=== PATIENT | male | born 1975 | race Caucasian/White ===

== ENCOUNTER 2016-07-27 00:43 | Emergency (ER) | payer OTHER ==
[~2016-07-27] VITALS: Ht 177.8 cm; Wt 113.0 kg
[2016-07-27 00:57] VITALS: BP 147/92; PULSE 128; RESP 16; TEMP 98.3; O2SAT 98
[2016-07-27 01:27] VITALS: BP 145/81; PULSE 124; RESP 18; O2SAT 99
[2016-07-27 01:32] LABS: AUTOMATED NEUTROPHIL # 8.4 TH/MM3 (1.8-7.7); BASOPHIL % 0.4 % (0.0-2.0); EOSINOPHIL % 0.1 % (0.0-4.0); HEMATOCRIT 42.7 % (39.0-51.0); HEMO FLAGS DIFF FINAL; LYMPH % 17.7 % (9.0-44.0); MEAN CELL VOLUME 91.9 FL (80.0-100.0); MEAN CORPUSCULAR HEMOGLOBIN 32.8 PG (27.0-34.0); MEAN CORPUSCULAR HGB CONC 35.7 % (32.0-36.0); NEUT % 73.8 % (16.0-70.0); PLATELET COUNT 163 TH/MM3 (150-450); RED BLOOD COUNT 4.65 MIL/MM3 (4.50-5.90); RED CELL DISTRIBUTION WIDTH 13.5 % (11.6-17.2); WHITE BLOOD COUNT 11.4 TH/MM3 (4.0-11.0)
--- NOTE | 2016-07-27 01:53 | PD ---
HPI Chief Complaint: Psychiatric Symptoms Time Seen by Provider: 01:01 Travel History International Travel<30 days: No Contact w/Intl Traveler<30days: No Traveled to known affect area: No History of Present Illness HPI 40-year-old male came to the emergency room with a Garcia act. He is intoxicated and threatened to kill himself. His called 911. Here he has been loud, inappropriate and argumentative. Given his intoxicated state patient is unable to give any meaningful history at this point. The above scant history was obtained from the Police paperwork who had Garcia acted him. [facility] Past Medical History Narrative Medical List of his past medical history as reviewed from the nursing note. Medical History: Unable to Obtain Diminished Hearing: No Tetanus Vaccination: Unknown Influenza Vaccination: No Past Surgical History Surgical History: Unable to Obtain Social History Alcohol Use: Yes Tobacco Use: Yes Substance Use: No Allergies-Medications (Allergen,Severity, Reaction): Coded Allergies: Penicillin (Verified Allergy, Unknown, 07/27/16) Comments List of his allergies reviewed from the nursing note. Reported Meds & Prescriptions Reported Meds & Active Scripts Active Active Prescriptions or Reported Medications Unobtainable Narrative Medication List of his home medications reviewed from the nursing note. Review of Systems Except as stated in HPI: all other systems reviewed are Neg Physical Exam Narrative GENERAL: Moderately intoxicated, slurred speech SKIN: Warm and dry. HEAD: Atraumatic. Normocephalic. EYES: Pupils equal and round. No scleral icterus. No injection or drainage. ENT: No nasal bleeding or discharge. Mucous membranes pink and moist. NECK: Trachea midline. No JVD. CARDIOVASCULAR: Regular rate and rhythm. No murmur appreciated. RESPIRATORY: No accessory muscle use. Clear to auscultation. Breath sounds equal bilaterally. GASTROINTESTINAL: Abdomen soft, non-tender, nondistended. Hepatic and splenic margins not palpable. MUSCULOSKELETAL: No obvious deformities. No clubbing. No cyanosis. No edema. NEUROLOGICAL: Intoxicated. No obvious cranial nerve deficits. Motor grossly within normal limits. Slurred speech. PSYCHIATRIC: Intoxicated, poor insight and judgment, loud and argumentative Data Data Last Documented VS Vital Signs Date Time Temp Pulse Resp B/P Pulse Ox O2 Delivery O2 Flow Rate FiO2 07/27/16 08:00 98.3 90 16 139/79 99 Room Air Orders Complete Blood Count With Diff (07/27/16 01:05) Comprehensive Metabolic Panel (07/27/16 01:05) Drug Screen, Random Urine (07/27/16 01:05) Psych Screen (07/27/16 01:05) Alcohol (Ethanol) (07/27/16 01:21) Diet Regular Basic (07/27/16 Breakfast) Labs Laboratory Tests Test 07/27/16 07/27/16 01:15 04:00 White Blood Count 11.4 TH/MM3 Red Blood Count 4.65 MIL/MM3 Hemoglobin 15.3 GM/DL Hematocrit 42.7 % Mean Corpuscular Volume 91.9 FL Mean Corpuscular Hemoglobin 32.8 PG Mean Corpuscular Hemoglobin 35.7 % Concent Red Cell Distribution Width 13.5 % Platelet Count 163 TH/MM3 Mean Platelet Volume 9.8 FL Neutrophils (%) (Auto) 73.8 % Lymphocytes (%) (Auto) 17.7 % Monocytes (%) (Auto) 8.0 % Eosinophils (%) (Auto) 0.1 % Basophils (%) (Auto) 0.4 % Neutrophils # (Auto) 8.4 TH/MM3 Lymphocytes # (Auto) 2.0 TH/MM3 Monocytes # (Auto) 0.9 TH/MM3 Eosinophils # (Auto) 0.0 TH/MM3 Basophils # (Auto) 0.0 TH/MM3 CBC Comment DIFF FINAL Differential Comment Sodium Level 137 MEQ/L Potassium Level 3.7 MEQ/L Chloride Level 104 MEQ/L Carbon Dioxide Level 21.4 MEQ/L Anion Gap 12 MEQ/L Blood Urea Nitrogen 10 MG/DL Creatinine 1.48 MG/DL Estimat Glomerular Filtration 53 ML/MIN Rate Random Glucose 137 MG/DL Calcium Level 8.5 MG/DL Total Bilirubin 0.5 MG/DL Aspartate Amino Transf 202 U/L (AST/SGOT) Alanine Aminotransferase 71 U/L (ALT/SGPT) Alkaline Phosphatase 69 U/L Total Protein 8.0 GM/DL Albumin 4.4 GM/DL Ethyl Alcohol Level 200 MG/DL Urine Opiates Screen NEG Urine Barbiturates Screen NEG Urine Amphetamines Screen NEG Urine Benzodiazepines Screen NEG Urine Cocaine Screen POS Urine Cannabinoids Screen POS MDM Medical Decision Making Medical Screen Exam Complete: Yes Emergency Medical Condition: Yes Medical Record Reviewed: Yes Differential Diagnosis Acute alcohol intoxication, major depression, suicidal ideation Narrative Course 1:52 AM awaiting for the blood test results for medical clearance followed by psych screen. 2:17 AM his blood test results of back and alcohol level is 200. Patient will need to be seen by psych once he is sober. Otherwise he is medically cleared. Procedures EKG Prior to Arrival: No Scripts Unable to Obtain Active Prescriptions or Reported Meds Ulysses Luna MD Jul 27, 2016 01:53
[2016-07-27 01:54] LABS: ANION GAP 12 MEQ/L (5-15); AST (GOT) 202 U/L (15-37); BICARBONATE 21.4 MEQ/L (21.0-32.0); BLOOD UREA NITROGEN 10 MG/DL (7-18); CHLORIDE 104 MEQ/L (98-107); GLOMERULAR FILTRATION RATE 53 ML/MIN (>89); POTASSIUM 3.7 MEQ/L (3.5-5.1); SODIUM (NA) 137 MEQ/L (136-145)
[2016-07-27 01:58] LABS: ALKALINE PHOSPHATASE 69 U/L (45-117); ALT (GPT) 71 U/L (12-78); TOTAL BILIRUBIN ADULT 0.5 MG/DL (0.2-1.0)
[2016-07-27 02:21] VITALS: BP 145/84; PULSE 98; RESP 16; O2SAT 99
[2016-07-27 04:35] LABS: AMPHETAMINE, URINE NEG (NEG); BARBITURATES, URINE NEG (NEG); COCAINE, URINE POS (NEG)
[2016-07-27 08:00] VITALS: BP 139/79; PULSE 90; RESP 16; TEMP 98.3; O2SAT 99
--- NOTE | 2016-07-27 11:32 | PD ---
History of Present Illness Chief Complaint: Psychiatric Symptoms Time Seen by Provider: 11:15 Travel History International Travel<30 Days: No Contact w/Intl Traveler<30days: No Known affected area: No Legal Status Legal Status: Garcia Act Garcia Act Signed By: Esthela Fernandez History of Present Illness: History of Present Illness HPI 40-year-old male with no previous psychiatric history who presents to ED under a Garcia act initiated by TARYND. As per the report ; " The subject is hearing and seeing things Stated there are a set of slippers in his bedroom that have someone else DNA on them but are not his". He presented agitated in ED with BAL of 200 and positive toxicology for cocaine and cannabinoids. Patient was allowed to sober up clinically and was monitored in safe environment. He did not exhibit any behaviors indicating any agitation, psychosis or suicidality. As per record review he has not had previous contact with Psychiatric department. This morning he is clinically sober. Alert and oriented. Speech is clear and logical. There is no indication of any hallucinations, no paranoia and no suicidal or homicidal ideation, intent or plan. He states that yesterday he had consumed cocaine, marijuana as well as alcohol. When he came home he found his on the floor and he called 911 while performing CPR. His is currently in [facility] ICU. He then called the police because he found a slipper that did not belong to her and he was suspicious. He admits to being agitated but denies that the slipper was imaginary and he wanted to report to the police that he felt someone else had been in the house. He is not suicidal or homicidal and is not psychotic at this time. In terms of substance use I discussed with him tretament options to help him gain sobriety but at this time he refuses such. PFSH Past Medical History Medical History: Unable to Obtain Diminished Hearing: No Tetanus Vaccination: Unknown Influenza Vaccination: No Past Surgical History Surgical History: Unable to Obtain Psychiatric History Psychiatric History Hx Psychiatric Treatment: Deneis any History of Inpatient Treatment: No Guns or firearms in home: No Social History male. Living with his . works in sales. Lengthy legal history. Hx Alcohol Use: Yes Hx Tobacco Use: Yes Hx Substance Use: Yes Substance Use Type: Alcohol, Nicotine/Cigarettes, Cocaine Other Substances Used: 1 ppd Hx of Substance Use Treatment: No Family Psychiatric History None re[ported Allergies-Medications (Allergen,Severity, Reaction): Coded Allergies: Penicillin (Verified Allergy, Unknown, 07/27/16) Reported Meds & Prescriptions Reported Meds & Active Scripts Active Active Prescriptions or Reported Medications Unobtainable Review of Systems Except as stated in HPI: all other systems reviewed are Neg Psychiatric: COMPLAINS OF: Anxiety (over 's current medical condition) Exam Alert: Yes [place]: Person (ox4) Mood: Anxious Affect: Euthymic Speech: Clear, Logical Eye Contact: Normal Memory Intact: Comment (no impairmetn) Hallucinations: Other (negative) Delusions: No Suicidal: Ideation (deneis any) Homicidal: Ideation (deneis any) Insight/Judgement Poor. Not impaired MDM Medical Decision Making Medical Record Reviewed: Yes Assessment/Plan 40 year old male with hx of substance use disorder who presents under a BA after the police called 911. Patient under the influence of ETOH, cocaine and cannabis and as per report was seeing things and hearing voices. Patient allowed to sober up clinically. At his time he presents no psychiatric symptomatology and does not meet BA criteria. He will be discharged. I have counseled him regarding substance abuse treatment but at this time he is at precontemplative stage and declined. Orders Complete Blood Count With Diff (07/27/16 01:05) Comprehensive Metabolic Panel (07/27/16 01:05) Drug Screen, Random Urine (07/27/16 01:05) Psych Screen (07/27/16 01:05) Alcohol (Ethanol) (07/27/16 01:21) Diet Regular Basic (07/27/16 Breakfast) Diet Regular Basic (07/27/16 Lunch) Results Vital Signs Date Time Temp Pulse Resp B/P Pulse Ox O2 Delivery O2 Flow Rate FiO2 07/27/16 08:00 98.3 90 16 139/79 99 Room Air 07/27/16 02:21 98 16 145/84 99 Room Air 07/27/16 01:27 124 18 145/81 99 Room Air 07/27/16 00:59 128 16 07/27/16 00:57 98.3 128 16 147/92 98 Laboratory Tests Test 07/27/16 07/27/16 01:15 04:00 White Blood Count 11.4 Red Blood Count 4.65 Hemoglobin 15.3 Hematocrit 42.7 Mean Corpuscular Volume 91.9 Mean Corpuscular Hemoglobin 32.8 Mean Corpuscular Hemoglobin 35.7 Concent Red Cell Distribution Width 13.5 Platelet Count 163 Mean Platelet Volume 9.8 Neutrophils (%) (Auto) 73.8 Lymphocytes (%) (Auto) 17.7 Monocytes (%) (Auto) 8.0 Eosinophils (%) (Auto) 0.1 Basophils (%) (Auto) 0.4 Neutrophils # (Auto) 8.4 Lymphocytes # (Auto) 2.0 Monocytes # (Auto) 0.9 Eosinophils # (Auto) 0.0 Basophils # (Auto) 0.0 CBC Comment DIFF FINAL Differential Comment Sodium Level 137 Potassium Level 3.7 Chloride Level 104 Carbon Dioxide Level 21.4 Anion Gap 12 Blood Urea Nitrogen 10 Creatinine 1.48 Estimat Glomerular Filtration 53 Rate Random Glucose 137 Calcium Level 8.5 Total Bilirubin 0.5 Aspartate Amino Transf 202 (AST/SGOT) Alanine Aminotransferase 71 (ALT/SGPT) Alkaline Phosphatase 69 Total Protein 8.0 Albumin 4.4 Ethyl Alcohol Level 200 Urine Opiates Screen NEG Urine Barbiturates Screen NEG Urine Amphetamines Screen NEG Urine Benzodiazepines Screen NEG Urine Cocaine Screen POS Urine Cannabinoids Screen POS Diagnosis Primary Impression: Drug-induced mood disorder Psychiatrically Cleared: Yes Referrals: [facility] (Out patient) call for appointment Departure Forms: Tests/Procedures Patient Instructions: General Instructions, Mood Disorders (ED), Abuse of Alcohol (ED) Med/ Other Pt Specific Info: No Meds Exist/No RX given Prescriptions Unable to Obtain Active Prescriptions or Reported Meds Disposition: 01 DISCHARGE HOME Condition: Stable Gia King DEONTE Jul 27, 2016 11:32
== END 2016-07-27 11:40 | disposition home or self-care (01) ==
LOC: NEPC 00:43 → NEPJ 11:40
DX: F19.94 Other psychoactive substance use, unspecified with psychoactive substance-induced mood disorder (principal); F10.129 Alcohol abuse with intoxication, unspecified; F32.9 Major depressive disorder, single episode, unspecified; Z72.0 Tobacco use; Y90.7 Blood alcohol level of 200-239 mg/100 ml
CPT/HCPCS: 80053; 80307; 80320; 85025; 99284